=== PATIENT | female | born 1990 | race Caucasian/White ===

== ENCOUNTER 2020-12-24 09:02 | Emergency (ER) | payer SELFPAY ==
[2020-12-24] MEDS ORDERED: PROAIR DIGIHAL90 MCG IH (09:19)
[2020-12-24] MEDS ORDERED: COQ1050 MG (09:19)
[2020-12-24 09:52] LABS: BASO # 0.02 (0.02-0.10); EOS # 0.09 (0.04-0.40); EOS % 1.7 % (1.0-5.0); HEMATOCRIT 39.7 % (37.0-47.0); HEMOGLOBIN 12.9 g/dL (12.5-16.0); MEAN CELL VOLUME 89 fl (78-100); MEAN CORPUSCULAR HEMOGLOBIN 29 pg (27-31); MEAN CORPUSCULAR HGB CONC 33 g/dL (33-37); MEAN PLATELET VOLUME 10.2 fl (7.4-10.4); MONO # 0.47 (0.20-0.80); NEU # 2.49 (1.40-6.50); PLATELET COUNT 231 K/mm3 (130-400); RED BLOOD COUNT 4.47 M/mm3 (4.10-5.30); WHITE BLOOD COUNT 5.4 K/mm3 (4.8-10.8)
[2020-12-24 10:07] LABS: ALBUMIN 4.2 g/dL (3.5-5.0); POTASSIUM 3.9 mmol/L (3.5-5.1)
[2020-12-24 10:09] LABS: CALCIUM 9.2 mg/dL (8.3-10.5)
[2020-12-24 10:10] LABS: TOTAL PROTEIN 6.6 g/dL (6.4-8.3)
[2020-12-24 10:12] LABS: TOTAL BILIRUBIN 0.4 mg/dL (0.2-1.2)
[2020-12-24 10:39] LABS: D-DIMER 0.06 mg/L FEU (0.15-0.50)
[2020-12-24] MEDS ORDERED: PROAIR HFA0.09 MG/AC IH (11:00)
[2020-12-24] MEDS ORDERED: PREDNISONE20 M1 PO (11:00)
[2020-12-24 11:05] VITALS: BP 98/60
== END 2020-12-24 11:20 | disposition home or self-care (01) ==
LOC: ED 09:02
PROVIDERS: Family Medicine
DX: J45.901 Unspecified asthma with (acute) exacerbation (principal); Z86.16 Personal history of COVID-19; Z87.891 Personal history of nicotine dependence; Z79.51 Long term (current) use of inhaled steroids
CPT/HCPCS: J7512

== ENCOUNTER 2021-01-04 01:40 | Emergency (ER) | payer SELFPAY ==
[~2021-01-04 01:40] MED LIST: COQ1050 MG; PREDNISONE20 M1 PO; PROAIR DIGIHAL90 MCG IH; PROAIR HFA0.09 MG/AC IH
[2021-01-04] MEDS ORDERED: BENADRYL ALLERG25 M2 PO (01:48)
[2021-01-04 02:30] VITALS: BP 103/62
== END 2021-01-04 02:52 | disposition home or self-care (01) ==
LOC: ED 01:40
DX: R06.1 Stridor (principal); F41.9 Anxiety disorder, unspecified; Z86.16 Personal history of COVID-19; Z87.891 Personal history of nicotine dependence
CPT/HCPCS: J1100